=== PATIENT | female | born 2005 | race Caucasian/White ===

== ENCOUNTER 2025-08-05 08:39 | Outpatient (CLI) | payer OTHER, SELFPAY | END 2025-08-05 08:40 | disposition home or self-care (01) | PROVIDERS: Visit Provider Obstetrics & Gynecology | DX: O20.9 Hemorrhage in early pregnancy, unspecified (principal) | CPT/HCPCS: 84702; 86850; 86900; 86901 ==

== ENCOUNTER 2025-08-07 10:07 | Outpatient (CLI) | payer OTHER, SELFPAY | END 2025-08-07 10:08 | disposition home or self-care (01) | PROVIDERS: Visit Provider Obstetrics & Gynecology | DX: O20.9 Hemorrhage in early pregnancy, unspecified (principal) | CPT/HCPCS: 84702 ==

== ENCOUNTER 2025-08-14 08:54 | Outpatient (CLI) | payer OTHER, SELFPAY | END 2025-08-14 08:55 | disposition home or self-care (01) | LOC: NFLDREF 08-28 02:54 | PROVIDERS: Visit Provider Obstetrics & Gynecology | DX: O03.9 Complete or unspecified spontaneous abortion without complication (principal) | CPT/HCPCS: 84702 ==

== ENCOUNTER 2025-08-21 09:20 | Outpatient (CLI) | payer OTHER, SELFPAY | END 2025-08-21 09:21 | disposition home or self-care (01) | PROVIDERS: Visit Provider Obstetrics & Gynecology | DX: O03.9 Complete or unspecified spontaneous abortion without complication (principal) | CPT/HCPCS: 84702 ==

== ENCOUNTER 2025-08-30 09:22 | Outpatient (CLI) | payer OTHER, SELFPAY | END 2025-08-30 09:23 | disposition home or self-care (01) | LOC: NFLDREF 09:23 | PROVIDERS: Visit Provider Obstetrics & Gynecology | DX: O20.8 Other hemorrhage in early pregnancy (principal) | CPT/HCPCS: 84702 ==

== ENCOUNTER 2025-09-13 09:12 | Outpatient (CLI) | payer OTHER, SELFPAY | END 2025-09-13 09:13 | disposition home or self-care (01) | LOC: NFLDREF 09-18 18:15 | PROVIDERS: Visit Provider Registered Nurse | DX: N96 Recurrent pregnancy loss (principal) | CPT/HCPCS: 84702 ==

== ENCOUNTER 2025-09-16 10:05 | Outpatient (CLI) | payer OTHER, SELFPAY | END 2025-09-16 10:06 | disposition home or self-care (01) | PROVIDERS: Visit Provider Registered Nurse | DX: N96 Recurrent pregnancy loss (principal) | CPT/HCPCS: 84702 ==

== ENCOUNTER 2025-09-18 08:43 | Outpatient (CLI) | payer OTHER, SELFPAY | END 2025-09-18 08:44 | disposition home or self-care (01) | LOC: NFLDREF 08:44 | PROVIDERS: Visit Provider Obstetrics & Gynecology | DX: N96 Recurrent pregnancy loss (principal) | CPT/HCPCS: 84702 ==

== ENCOUNTER 2025-09-25 09:33 | Outpatient (CLI) | payer OTHER, SELFPAY | END 2025-09-25 09:34 | disposition home or self-care (01) | LOC: NFLDREF 09-26 23:40 | PROVIDERS: Visit Provider Obstetrics & Gynecology | DX: O20.9 Hemorrhage in early pregnancy, unspecified (principal) | CPT/HCPCS: 84702 ==

== ENCOUNTER 2025-10-03 09:08 | Outpatient (CLI) | payer OTHER, SELFPAY | END 2025-10-03 09:09 | disposition home or self-care (01) | PROVIDERS: Visit Provider Physician Assistant | DX: N96 Recurrent pregnancy loss (principal) | CPT/HCPCS: 84443; 85520; 85525; 85598; 85610; 85613; 85670; 85730; 86146; 86147 ==

== ENCOUNTER 2025-10-19 12:23 | Outpatient (CLI) | payer OTHER, SELFPAY ==
[2025-10-19 13:07] LABS: HCG Quantitative* 168.88 mIU/mL
== END 2025-10-19 12:24 | disposition home or self-care (01) ==
PROVIDERS: Visit Provider Physician Assistant
DX: N96 Recurrent pregnancy loss (principal)
CPT/HCPCS: 36415; 84702

== ENCOUNTER 2025-10-21 16:56 | Outpatient (CLI) | payer OTHER, SELFPAY | END 2025-10-21 16:57 | disposition home or self-care (01) | LOC: NFLDREF 10-25 08:08 | PROVIDERS: Visit Provider Physician Assistant | DX: N96 Recurrent pregnancy loss (principal) | CPT/HCPCS: 84702 ==